=== PATIENT | male | born 1985 | race Hispanic/Latino ===

== ENCOUNTER 2016-10-26 10:59 | Emergency (ER) | payer SELFPAY ==
[2016-10-26 11:22] VITALS: BP 129/77; TEMP 97.5; O2SAT 98
--- NOTE | 2016-10-26 11:24 | ED.PDOC ---
History of Present Illness - General Chief Complaint: Abdominal Pain Stated Complaint: abdominal pain and right hip discomfort Time Seen by Provider: 10/26/16 11:06 Source: patient Exam Limitations: no limitations - History of Present Illness Initial Comments: the patient is a 31-year-old male presenting to the emergency room secondary to intermittent symptoms over the previous week. the patient had some periumbilical pain approximately one week ago that lasted about 24 hours and has had some residual discomfort. He was seen at another emergency room and was told this was likely the start of an umbilical hernia. Clinically this does seem likely. There is no palpable hernia at this time. He has not been having any vomiting or nausea. He is not sore in the area anymore. He showed up today due to discomfort in his right inguinal area starting 2 days ago when he coughed really hard. It lasted a few minutes until he twisted and turned and the pain went away. He had something of a recurrence of this pain this morning when he stepped off a curb and twisted. The pain lasted a few minutes and he moved around and then the pain went away. He has had no nausea or vomiting or no diarrhea. He has had no difficulty with passing gas or having a bowel movement. He is moderately obese. He is not having any pain now. There is no obvious palpable hernia at this time. There is some mild discomfort along the right inguinal canal. No pain in the testicles currently. No swelling of the testicles currently. Timing/Duration: 1 week Severity: mild Improving Factors: nothing Worsening Factors: other - coughing Associated Symptoms: denies symptoms Allergies/Adverse Reactions: Allergies NO KNOWN ALLERGY Allergy (Verified 10/26/16 11:08) Home Medications: Ambulatory Orders Lisinopril 20 mg PO AC 10/26/16 Review of Systems - Review of Systems Constitutional: States: no symptoms reported EENTM: States: no symptoms reported Respiratory: States: no symptoms reported Cardiology: States: no symptoms reported Gastrointestinal/Abdominal: States: see HPI Genitourinary: States: no symptoms reported Musculoskeletal: States: no symptoms reported Skin: States: no symptoms reported Neurological: States: no symptoms reported Endocrine: States: no symptoms reported All other Systems: No Change from Baseline Past Medical History (General) - Patient Medical History Hx Seizures: No Hx Stroke: No Hx Dementia: No Hx Asthma: No Hx of COPD: No Hx Cardiac Disorders: No Hx Congestive Heart Failure: No Hx Pacemaker: No Hx Hypertension: Yes Hx Thyroid Disease: No Hx Diabetes: No Hx Gastroesophageal Reflux: No Hx Renal Disease: No Hx Cancer: No Hx of HIV: No Hx Hepatitis C: No Hx MRSA: No - Vaccination History Hx Tetanus, Diphtheria Vaccination: Yes Hx Influenza Vaccination: No Hx Pneumococcal Vaccination: No Immunizations Up to Date: No - Social History Hx Tobacco Use: No Hx Chewing Tobacco Use: No Hx Alcohol Use: Yes Hx Substance Use: No Hx Substance Use Treatment: No Hx Depression: No Feels Threatened In Home Enviroment: No Feels Threatened In a Relationship: No Hx Physical Abuse: No Hx Emotional Abuse: No - Female History Patient is a Female of Child Bearing Age (10 -59 yrs old): No Patient : No Family Medical History - Family History Mother Family History: No Known Living Status: Still Living Physical Exam - Physical Exam General Appearance: Alert, Comfortable, No apparent distress Eye Exam: bilateral normal Ears, Nose, Throat: hearing grossly normal, normal ENT inspection, normal pharynx Neck: non-tender, full range of motion, normal inspection Respiratory: chest non-tender, lungs clear, normal breath sounds, no respiratory distress, no accessory muscle use Cardiovascular/Chest: normal peripheral pulses, regular rate, rhythm, no edema Peripheral Pulses: radial,right: 2+, radial,left: 2+ Gastrointestinal/Abdominal: normal bowel sounds, soft, other - see history of present illness Rectal Exam: deferred Back Exam: normal inspection, no CVA tenderness Extremity: normal range of motion, non-tender, normal inspection, no pedal edema , normal capillary refill Neurologic: alert, normal mood/affect, oriented x 3 Skin Exam: normal color Comments: Vital Signs - 24 hr 10/26/16 11:09 Temperature 97.5 F L Pulse Rate [ 83 Left Radial] Respiratory 18 Rate Blood Pressure 129/77 [Left Arm] O2 Sat by Pulse 98 Oximetry Progress - Progress Progress: 10/26/16 11:25 the patient is a 31-year-old male presenting with symptoms consistent with developing umbilical and inguinal hernias. The inguinal hernia developing on the right. The patient needs to avoid heavy lifting for the next few weeks. He does need to start doing abdominal exercises for abdominal wall strengthening, starting lightly and then progressing to more rigorous exercises. He does need to work on weight loss. I would also recommend that he see Dr. Interiano later this week for a reevaluation. There is no evidence of any bowel incarceration at this time. He is pain-free at the current time. ER warnings are given for any development of abdominal pain that he is unable to correct with corrective maneuvers as demonstrated to him here today. 10/26/16 11:29 Departure - Departure Clinical Impression: Umbilical hernia without obstruction and without gangrene Disposition: Discharge to Home or Self Care Condition: Fair Departure Forms: ED Discharge - Pt. Copy, Patient Portal Self Enrollment Instructions: DI for Abdominal Pain-Adult Diet: regular diet Activity: increase activity as tolerated Home Medications: Ambulatory Orders Lisinopril 20 mg PO AC 10/26/16 Additional Instructions: the patient is a 31-year-old male presenting with symptoms consistent with developing umbilical and inguinal hernias. The inguinal hernia developing on the right. The patient needs to avoid heavy lifting for the next few weeks. He does need to start doing abdominal exercises for abdominal wall strengthening, starting lightly and then progressing to more rigorous exercises. He does need to work on weight loss. I would also recommend that he see Dr. Interiano later this week for a reevaluation. There is no evidence of any bowel incarceration at this time. He is pain-free at the current time. ER warnings are given for any development of abdominal pain that he is unable to correct with corrective maneuvers as demonstrated to him here today.
== END 2016-10-26 11:37 | disposition home or self-care (01) ==
LOC: ER 10:59
DX: K42.9 Umbilical hernia without obstruction or gangrene (principal); I10 Essential (primary) hypertension; Z79.899 Other long term (current) drug therapy

== ENCOUNTER 2017-01-16 17:46 | Emergency (ER) | payer SELFPAY ==
[2017-01-16 17:57] VITALS: BP 153/100; TEMP 97.5; O2SAT 95
--- NOTE | 2017-01-16 18:08 | ED.PDOC ---
History of Present Illness - General Chief Complaint: Skin/Abrasion/Tear Stated Complaint: Skin irritation (R) groin Time Seen by Provider: 01/16/17 18:04 Source: patient Exam Limitations: no limitations - History of Present Illness Initial Comments: Mani Worthy 32 y/o male stated he noticed what might be an ingrown hair 2 days ago and this am tried to squeeze it out and this afternoon got more red and painful.No fever or chills. Timing/Duration: yesterday Severity: moderate Location: extremities Improving Factors: nothing Worsening Factors: nothing Associated Symptoms: denies symptoms Allergies/Adverse Reactions: Allergies NO KNOWN ALLERGY Allergy (Verified 01/16/17 17:56) Home Medications: Ambulatory Orders Lisinopril 10 mg PO AC 10/26/16 Clindamycin HCl 300 mg PO TID #30 cap 01/16/17 Review of Systems - Review of Systems Constitutional: States: no symptoms reported EENTM: States: no symptoms reported Respiratory: States: no symptoms reported Cardiology: States: no symptoms reported Gastrointestinal/Abdominal: States: no symptoms reported Genitourinary: States: no symptoms reported Musculoskeletal: States: no symptoms reported Skin: States: see HPI Past Medical History (General) - Patient Medical History Hx Seizures: No Hx Stroke: No Hx Dementia: No Hx Asthma: No Hx of COPD: No Hx Cardiac Disorders: No Hx Congestive Heart Failure: No Hx Pacemaker: No Hx Hypertension: Yes Hx Thyroid Disease: No Hx Diabetes: No Hx Gastroesophageal Reflux: No Hx Renal Disease: No Hx Cancer: No Hx of HIV: No Hx Hepatitis C: No Hx MRSA: No Surgical History: other - left knee - Vaccination History Hx Tetanus, Diphtheria Vaccination: Yes Hx Influenza Vaccination: No Hx Pneumococcal Vaccination: No - Social History Hx Tobacco Use: No Hx Chewing Tobacco Use: No Hx Alcohol Use: Yes Hx Substance Use: No Hx Substance Use Treatment: No Hx Depression: No Hx Physical Abuse: No Hx Emotional Abuse: No - Female History Patient : No Family Medical History - Family History Mother Family History: No Known Living Status: Still Living Hx Family Hypertension: Yes Physical Exam - Physical Exam General Appearance: Alert, Comfortable, No apparent distress Eyes, Ears, Nose, Throat Exam: PERRL/EOMI, normal ENT inspection, TMs normal, pharynx normal Neck: non-tender, full range of motion, supple Cardiovascular/Chest: regular rate, rhythm, no edema, no gallop, no murmur Respiratory: chest non-tender, lungs clear, normal breath sounds Gastrointestinal/Abdominal: normal bowel sounds, non tender, soft, no organomegaly Back Exam: normal inspection Extremity: non-tender, normal inspection, no pedal edema, no calf tenderness Skin Exam: warm/dry, normal color Skin Problem Location: other - right groin Skin Character: erythema, tenderness Lymphatic: no adenopathy Departure - Departure Clinical Impression: Cellulitis of groin, right Time of Disposition: 18:10 Disposition: Discharge to Home or Self Care Condition: Good Departure Forms: ED Discharge - Pt. Copy, Patient Portal Self Enrollment Instructions: DI for Cellulitis -- Adult Referrals: Silke Sparks FNP [Primary Care Provider] - 1-2 Weeks Prescriptions: Clindamycin HCl 300 mg PO TID #30 cap Home Medications: Ambulatory Orders Lisinopril 10 mg PO AC 10/26/16 Clindamycin HCl 300 mg PO TID #30 cap 01/16/17 Additional Instructions: FOLLOW UP WITH PRIMARY MD 01/19/2017 call for appointment
[2017-01-16] MEDS ORDERED: CLINDAMYCIN HCL CAP 150 MG CAP PO ONE (18:11)
[2017-01-16] MEDS ORDERED: SULFA/TRIMETH 800/160 (DS) TAB 1 EA TAB PO ONE (18:12)
== END 2017-01-16 18:29 | disposition home or self-care (01) ==
LOC: ER 17:46
DX: L03.314 Cellulitis of groin (principal); I10 Essential (primary) hypertension; Z79.899 Other long term (current) drug therapy